=== PATIENT | female | born 1950 | race Caucasian/White ===

== ENCOUNTER 2016-09-11 11:42 | Inpatient (IN) ==
--- NOTE | 2016-09-10 22:41 | Discharge Summary ---
<Letty Thao - Last Filed: 09/12/16 15:25> Date of Encounter: 09/12/16 - Discharge Diagnosis (1) Arthritis of knee, left Priority: Primary Status: Chronic (2) Status post total knee replacement, left Priority: Primary Status: Acute (3) DMII (diabetes mellitus, type 2) Priority: Secondary Status: Chronic Qualifiers: Diabetes mellitus complication status: without complication Diabetes mellitus alf insulin use: unspecified alf insulin use status Qualified Code(s): E11.9 - Type 2 diabetes mellitus without complications (4) HTN (hypertension) Priority: Secondary Status: Chronic Qualifiers: Hypertension type: essential hypertension Qualified Code(s): I10 - Essential (primary) hypertension (5) KELSEA (obstructive sleep apnea) Priority: Secondary Status: Chronic (6) Chronic pain Priority: Secondary Status: Chronic Qualifiers: Chronic pain type: other chronic pain Qualified Code(s): G89.29 - Other chronic pain - Discharge Medications Prescriptions: Lidocaine Patch [Lidoderm 5% patch] 1 each TP DAILY #10 adh..patch Home Medications: Amitriptyline [Elavil] 25 mg PO HS 09/02/15 [History] Cetirizine HCl 10 mg PO DAILY 09/02/15 [History] Citalopram Hydrobromide [Celexa] 40 mg PO DAILY 09/02/15 [History] Duloxetine HCl [Cymbalta] 60 mg PO DAILY 09/02/15 [History] Losartan/Hydrochlorothiazide [Hyzaar 100-12.5 Tablet] 1 tab PO DAILY 09/02/15 [ History] Lubiprostone [Amitiza] 24 mcg PO BID 09/02/15 [History] Magnesium Oxide [Magnesium] 400 mg PO DAILY 09/02/15 [History] Metoprolol [Lopressor] 25 mg PO BID 09/02/15 [History] Morphine Sulfate ER (24 HR) [Morphine Sulfate ER Caps] 30 mg PO Q12H 09/02/15 [ History] Omeprazole [PriLOSEC] 40 mg PO BID 09/02/15 [History] Polyethylene Glycol 3350 [MiraLAX] 17 gm PO DAILY PRN 09/02/15 [History] Ranitidine HCl [Heartburn Relief] 150 mg PO BID 09/02/15 [History] Simvastatin [Zocor] 40 mg PO HS 09/02/15 [History] Sitagliptin Phosphate [Januvia] 50 mg PO DAILY 09/02/15 [History] Tizanidine HCl 4 mg PO Q8H PRN 09/02/15 [History] Trazodone HCl 150 mg PO HS 09/02/15 [History] Fluticasone Propionate Nasal [Flonase] 2 spr NS DAILY PRN 08/08/16 [History] Nitroglycerin [Nitrostat] 0.4 mg SL Q5M PRN 08/08/16 [History] Potassium Chloride [K-Tab ER] 20 meq PO QAM 08/08/16 [History] Aspirin Enteric Coated [Aspirin EC] 325 mg PO DAILY #21 tablet. 09/10/16 [Rx] Aspirin [Lo-Dose Aspirin EC] 81 mg PO DAILY 09/11/16 [History] Docusate [Colace] 100 mg PO DAILY PRN 09/11/16 [History] Potassium Chloride [Klor-Con 10] 10 meq PO QPM 09/11/16 [History] Solifenacin Succinate [Vesicare] 10 mg PO DAILY 09/11/16 [History] Lidocaine Patch [Lidoderm 5% patch] 1 each TP DAILY #10 adh..patch 09/12/16 [Rx] Allergies/Adverse Reactions: Allergies Iodinated Contrast- Oral and IV Dye [Iodinated Contrast Media - IV Dye] Adverse Reaction (Verified 08/08/16 07:13) Itching pregabalin [From Lyrica] Adverse Reaction (Verified 08/08/16 07:13) Cramping of the Muscles Primary care physician: Darrion Saenz MD - Patient Status Disposition: Transfer Inpatient Rehab Fac Condition: Good - Discharge Instructions Follow Up With: Darrion Saenz MD [Primary Care Provider] - - Hospital Course Hospital course: Ms. Adame is a 66 year old female - Time Spent with Patient Total time spent providing and/or coordinating discharge services: <Nayan Mcguire - Last Filed: 09/14/16 06:24> Date of Encounter: 09/14/16 Time of Encounter: 06:24 - Discharge Diagnosis (1) Morbid obesity with BMI of 45.0-49.9, adult Priority: Secondary Status: Chronic (2) Arthritis of knee, left Priority: Primary Status: Chronic (3) Status post total knee replacement, left Priority: Primary Status: Acute (4) DMII (diabetes mellitus, type 2) Priority: Secondary Status: Chronic Qualifiers: Diabetes mellitus complication status: without complication Diabetes mellitus alf insulin use: unspecified alf insulin use status Qualified Code(s): E11.9 - Type 2 diabetes mellitus without complications (5) HTN (hypertension) Priority: Secondary Status: Chronic Qualifiers: Hypertension type: essential hypertension Qualified Code(s): I10 - Essential (primary) hypertension (6) KELSEA (obstructive sleep apnea) Priority: Secondary Status: Chronic (7) Chronic pain Priority: Secondary Status: Chronic Qualifiers: Chronic pain type: other chronic pain Qualified Code(s): G89.29 - Other chronic pain (8) Acute blood loss anemia Priority: Primary Status: Acute Primary care physician: Darrion Saenz MD - Patient Status Functional capacity at discharge: uses cane/walker Overall status at discharge: patient is progressing back to baseline - Hospital Course Hospital course: Ms. Adame is a 66 year old female Status post left total knee replacement. Patient with post-acute blood loss anemia asymptomatic. The patient had an uneventful postoperative course. They received antibiotics and physical therapy and were discharged in stable condition. There will follow -up in the office in 2 weeks. - Time Spent with Patient Total time spent providing and/or coordinating discharge services:
--- NOTE | 2016-09-10 22:48 | Physician Discharge Referral ---
ExtendedCare Referral Info Transfer To: F Provider in Charge after Transfer: PCP Institutional Level of Care: Skilled - Diagnosis (1) Arthritis of knee, left Priority: Primary Status: Acute (2) Status post total knee replacement, left Priority: Primary Status: Acute (3) DMII (diabetes mellitus, type 2) Priority: Secondary Status: Chronic (4) HTN (hypertension) Priority: Secondary Status: Chronic (5) KELSEA (obstructive sleep apnea) Priority: Secondary Status: Chronic (6) Chronic pain Priority: Secondary Status: Chronic Expected Duration of Placement: < 30 days Prognosis: Good Aware of Diagnosis: Patient Aware of Prognosis: Patient - Transfer Medications Prescriptions: Aspirin Enteric Coated [Aspirin EC] 325 mg PO DAILY #21 tablet.dr Home Medications: Amitriptyline [Elavil] 25 mg PO HS 09/02/15 [History] Aspirin Enteric Coated [Aspirin EC] 81 mg PO DAILY 09/02/15 [History] Cetirizine HCl 10 mg PO DAILY 09/02/15 [History] Citalopram Hydrobromide [Celexa] 40 mg PO DAILY 09/02/15 [History] Duloxetine HCl [Cymbalta] 60 mg PO DAILY 09/02/15 [History] Losartan/Hydrochlorothiazide [Hyzaar 100-12.5 Tablet] 1 tab PO DAILY 09/02/15 [ History] Lubiprostone [Amitiza] 24 mcg PO BID 09/02/15 [History] Magnesium Oxide [Magnesium] 400 mg PO DAILY 09/02/15 [History] Metoprolol [Lopressor] 25 mg PO BID 09/02/15 [History] Morphine Sulfate ER (24 HR) [Morphine Sulfate ER Caps] 30 mg PO Q12H 09/02/15 [ History] Omeprazole [PriLOSEC] 40 mg PO DAILY 09/02/15 [History] Oxybutynin Chloride [Ditropan Xl] 10 mg PO DAILY 09/02/15 [History] Polyethylene Glycol 3350 [MiraLAX] 17 gm PO DAILY 09/02/15 [History] Ranitidine HCl [Heartburn Relief] 150 mg PO BID 09/02/15 [History] Simvastatin [Zocor] 40 mg PO HS 09/02/15 [History] Sitagliptin Phosphate [Januvia] 50 mg PO DAILY 09/02/15 [History] Tizanidine HCl 4 mg PO Q8H PRN 09/02/15 [History] Trazodone HCl 150 mg PO HS 09/02/15 [History] Fluticasone Propionate Nasal [Flonase] 2 spr NS DAILY PRN 08/08/16 [History] Nitroglycerin [Nitrostat] 0.4 mg SL Q5M PRN 08/08/16 [History] OxyCODONE/APAP 10/325 [Percocet 10/325 MG] 1 each PO Q6HR PRN #26 tablet [Rx] Potassium Chloride [K-Tab ER] 20 meq PO QPM 08/08/16 [History] Aspirin Enteric Coated [Aspirin EC] 325 mg PO DAILY #21 tablet. 09/10/16 [Rx] Allergies/Adverse Reactions: Allergies Iodinated Contrast- Oral and IV Dye [Iodinated Contrast Media - IV Dye] Adverse Reaction (Verified 08/08/16 07:13) Itching pregabalin [From Lyrica] Adverse Reaction (Verified 08/08/16 07:13) Cramping of the Muscles - Respiratory Orders None Smoking Cessation: Smoking cessation has been advised. For more information, call the [place] Tobacco Quit Line at 9-128-TTJZ-NOW. - Ancillary Orders May use pressure relief devices daily prn, May go on CLAY w/family/respon republican w /meds at nurse discretion PRN, May consult with Dentist, Front Office Java Developer, Facsimile Machine Operator PRN - Mobility Orders Chair, Ambulate - Rehabiliation Orders Rehab Potential: Good Rehab Orders: ROM Exercises, Evaluation for Physical Therapy, Evaluation for Occupational Therapy - Treatments List/Other: Opsite dressing, leave intact until first post-operative visit. If dressing becomes >50% saturated, contact office, remove dressing and place appropriate dressing in its place. Do not allow for dressing to get wet. [place] in place, plan to remove at post-operative day #14-16. Total Joint Precautions x 6 weeks Apply cold therapy wrap 3-6x/day for 20 minutes at a time. Encourage ambulation throughout the day Use Incentive spirometer 10x/hour. Elevate affected extremity above heart as tolerated. Brace: Wear knee immobilizer at night x 2 weeks - Diet Orders Regular CERTIFICATION: I certify that the transfer of the above named patient to an Extended Care Facility is necessary for the continuing treatment of the diagnosis listed. The above information is true and accurate reflection of patient's current condition. Confidential - Redisclosure prohibited without a patient's written consent.
--- NOTE | 2016-09-11 12:14 | History & Physical Report ---
Date of Encounter: 09/11/16 Time of Encounter: 12:14 24 Hour HP Update - Instructions Instructions: If the History and Physical is less than 30 days old and was completed prior to A.M. admission and or procedure and has NOT been updated on calendar day of procedure please complete this update prior to performing procedure. - Update Patient reports changes in Medical Condition: No Changes in examination, assessment, or condition: No Changes in Medication: No Preop tests/diagnostics Reviewed: Yes Surgery Remains Indicated: Yes Consent for Planned Operative Procedure(s) Verified: Yes - Pre-Operative Checklist Preoperative Checklist Indicated: No Prophylactic Antibiotic Ordered: Yes Is VTE Prophylaxis Indicated?: Yes
[2016-09-11] MEDS ORDERED: Albuterol 2.5 MG/3 ML NEBULIZER IH ONE ×2 (12:20→14:28)
[2016-09-11] MEDS ORDERED: CeFAZolin Pre 3,000 MG/100 ML 3,000 MG/100 ML BAG IVPB ONE (12:20)
[2016-09-11] MEDS ORDERED: *HR* Propofol 200 MG/20 ML VIAL IVP ONE (12:30)
[2016-09-11] MEDS ORDERED: *HR* Midazolam HCl 2 MG/2 ML VIAL ONE (12:30)
[2016-09-11] MEDS ORDERED: Ringers Solution, Lactated 1,000 ML IVC SCH ×3 (12:30→17:40)
[2016-09-11] MEDS ORDERED: *HR* FentaNYL (PF) 100 MCG/2 ML VIAL ONE (12:30)
[2016-09-11] MEDS ORDERED: Lidocaine -MPF 2% 2 ML VIAL ONE (12:31)
[2016-09-11] MEDS ORDERED: Famotidine 20 MG/2 ML VIAL IVP ONE (13:11)
--- NOTE | 2016-09-11 13:30 | Anesthesia Evaluation PreOp ---
Date of Encounter: 09/11/16 Time of Encounter: 13:25 - Past History Planned Operation: Left TKA Cardiac History: HTN, Hyperlipidemia Pulmonary History: KELSEA Dx (BiPAP) TRAFFIC INSPECTOR History: Other (Fibromyalgia) Other Medical History: Diabetes Type II (Accu check 101) Anesthesia History: No Prior Anesthetic Complications : No Test: Negative Alcohol Use: occasionally Drug use: none Medications and Allergies Amitriptyline [Elavil] 25 mg PO HS 09/02/15 [History] Aspirin Enteric Coated [Aspirin EC] 81 mg PO DAILY 09/02/15 [History] Cetirizine HCl 10 mg PO DAILY 09/02/15 [History] Citalopram Hydrobromide [Celexa] 40 mg PO DAILY 09/02/15 [History] Duloxetine HCl [Cymbalta] 60 mg PO DAILY 09/02/15 [History] Losartan/Hydrochlorothiazide [Hyzaar 100-12.5 Tablet] 1 tab PO DAILY 09/02/15 [ History] Lubiprostone [Amitiza] 24 mcg PO BID 09/02/15 [History] Magnesium Oxide [Magnesium] 400 mg PO DAILY 09/02/15 [History] Metoprolol [Lopressor] 25 mg PO BID 09/02/15 [History] Morphine Sulfate ER (24 HR) [Morphine Sulfate ER Caps] 30 mg PO Q12H 09/02/15 [ History] Omeprazole [PriLOSEC] 40 mg PO DAILY 09/02/15 [History] Oxybutynin Chloride [Ditropan Xl] 10 mg PO DAILY 09/02/15 [History] Polyethylene Glycol 3350 [MiraLAX] 17 gm PO DAILY 09/02/15 [History] Ranitidine HCl [Heartburn Relief] 150 mg PO BID 09/02/15 [History] Simvastatin [Zocor] 40 mg PO HS 09/02/15 [History] Sitagliptin Phosphate [Januvia] 50 mg PO DAILY 09/02/15 [History] Tizanidine HCl 4 mg PO Q8H PRN 09/02/15 [History] Trazodone HCl 150 mg PO HS 09/02/15 [History] Fluticasone Propionate Nasal [Flonase] 2 spr NS DAILY PRN 08/08/16 [History] Nitroglycerin [Nitrostat] 0.4 mg SL Q5M PRN 08/08/16 [History] OxyCODONE/APAP 10/325 [Percocet 10/325 MG] 1 each PO Q6HR PRN #26 tablet [Rx] Potassium Chloride [K-Tab ER] 20 meq PO QPM 08/08/16 [History] Aspirin Enteric Coated [Aspirin EC] 325 mg PO DAILY #21 tablet. 09/10/16 [Rx] Allergies Iodinated Contrast- Oral and IV Dye [Iodinated Contrast Media - IV Dye] Adverse Reaction (Verified 08/08/16 07:13) Itching pregabalin [From Lyrica] Adverse Reaction (Verified 08/08/16 07:13) Cramping of the Muscles - Meds/Allergy Pre-op Review Medications Reviewed: Yes Allergies Reviewed: Yes Beta Blockers on Current Med List: Yes (Took today 1310 Metoprolol) Anesthesia Results - Labs Laboratory Tests 08/19/15 09/06/16 09/06/16 19:20 15:27 15:27 Hgb 13.3 Hct 42.2 Plt Count 262 Sodium 139 Potassium 3.6 BUN 17 POC Creatinine 1.20 H - Imaging EKG: report reviewed (SR) Anesthesia Exam O2 Sat Height 1.68 m Height 1.68 m Height 1.68 m Weight 133.356 kg Weight 133.356 kg Weight 133.356 kg O2 Sat by Pulse Oximetry 95 Vital Signs Temp Pulse Resp BP Pulse Ox 98.2 F 61 18 143/59 95 09/11/16 12:12 09/11/16 12:12 09/11/16 12:12 09/11/16 12:12 09/11/16 12:12 Height: 5'6 Weight: 294 lbs NPO (# of Hours): MN Pain Scale: 0 - HEENT Pupil (Motor): Pupils equal, EOMI Mallampati: III Teeth: Normal Oral Opening: Less than or equal to 3 - TRAFFIC INSPECTOR LOC: Oriented TRAFFIC INSPECTOR Motor: Normal RUE, Normal LUE, Normal RLE, Normal LLE, Normal Face TRAFFIC INSPECTOR Sensory: Normal: RUE, LUE, RLE, LLE, Face - Cardiac Rhythm: Regular Murmur: None JVD: No Carotid Bruit: No - Pulmonary Breath Sounds: bilateral Clear Respiratory Effort: Symmetrical Anesthesia Assess/Plan ASA Score: 3 (MO HTN) Modified Monserrat Scale for Level of Consciousness: Cooperative, oriented, and tranquil Anesthetic Plan: General, Regional Monitoring Plan: Standard Monitors Recovery Plan: PACU (Discussed GA and RA, agrees to proceed)
[2016-09-11] MEDS ORDERED: ROPIVACAINE HCL/PF 0.5% 30 ML VIAL ONE (13:35)
[2016-09-11] MEDS ORDERED: Dexamethasone 4 MG/ML VIAL ONE ×2 (13:35→14:17)
[2016-09-11] MEDS ORDERED: Bupivacaine/Clonidine Syringe 1 EACH SYRINGE ONE (13:36)
[2016-09-11] MEDS ORDERED: Ondansetron 4 MG/2 ML VIAL ONE (14:17)
[2016-09-11] MEDS ORDERED: *HR* Labetalol 20 MG/4 ML SYRINGE IVP PRN (14:28)
[2016-09-11] MEDS ORDERED: Naloxone 0.4 MG/ML INJ IVP PRN ×2 (14:28→17:40)
[2016-09-11] MEDS ORDERED: *HR* Meperidine 25 MG/ML SYRINGE IVP PRN (14:28)
[2016-09-11] MEDS ORDERED: Ondansetron 4 MG/2 ML VIAL IVP ONE (14:28)
--- NOTE | 2016-09-11 14:28 | Anesthesia Procedures ---
Date of Encounter: 09/11/16 Time of Encounter: 14:26 Procedures: Anesthesia - Nerve Block Procedure Date: 09/11/16 Time: 14:26 Surgical Procedure: left tka Checklist: Correct Patient Identifier, Correct procedure, History checked Correct side: Left Blood Thinner: No Monitor Applied: EKG, BP, Pulse Oximetry Sedation: Versed (mg): 2 Sedation: Fentanyl (mcg): 100 Indication: Post Op Analgesia (request per dr salvador for post op pain control) Pre-op Neuro Deficits: No Block Type: Femoral Catheter placed: No Sterile Technique: Yes Ultrasound used: Yes Anatomy identified: Yes Visual spread of Local: Yes Neuro Stimulation: Yes Nerve Stimulator Range: >0.4 - 0.6 mA Blood on Needle Aspiration: No Smooth Injection of Local: Yes Pain with Injection of Local: No Prep: Chlorhexadine Needle: 21 x 100 mm Stimuplex Local: Ropivacaine (0.5% with 8mg decadron) Volume (cc): 30 Number of Attempts: 1 Complications: None/effective block Vitals: Vital Signs/O2 Sat/Glucose, Most Current Temp Pulse Resp BP Pulse Ox 09/11/16 14:01 57 16 127/82 96 09/11/16 12:12 98.2 F 61 18 143/59 95 Comments: pt tolerated procedure well. no complications. vss. attempted ipack block - unable to visualize on US.
[2016-09-11] MEDS ORDERED: *HR* HYDROmorphone 2 MG/ML SYRINGE ONE (14:29)
--- NOTE | 2016-09-11 15:10 | Orthopedic Operative Note ---
Date of procedure: 09/11/16 Pre-op diagnosis: Left knee arthritis Post-op diagnosis: same Procedure: Procedure: Left Total knee replacement Estimated blood loss: 200 cc Hardware: Metal and polyethylene replacement: Biomet Femur: 70, 18 x 120 Tibia: 71, 14 x 120 Farzana insert: 12 Patella: 40 Exam Under anesthesia: Loss full extension 10 degrees less than 90 degrees Procedural Notes: Grade 4 arthritic changes in all 3 compartments. Operative procedure: The patient was brought to the operating room and placed on the operating room table. After general anesthesia was administered the operative knee was examined. Findings were noted in the exam under anesthesia. The operative extremity was prepped and draped in sterile surgical fashion. The patient received IV antibiotics prior to skin incision. A standard midline incision was made centered over the patella. The incision was made through the skin and subcutaneous tissue. A medial parapatellar tendon approach was performed. Care was taken to preserve tissue along the medial aspect of the patella. And to protect the patella tendon. The deep MCL was released off the medial tibia. The infra patella fat pad was excised. Knee was brought into flexion. Patient noted to have grade 4 arthritic changes all 3 compartments. The entry hole was made for the intramedullary femoral guide. The guide was seated in 6 degrees of valgus. Anterior cut was made followed by the distal cut. The PCL the medial and the lateral menisci were excised. The tibia was subluxed forward. The entry hole was made for the intramedullary tibial guide. Guide was seated to resect 2 mm off the more abnormal side. The knee was brought into flexion the distal femur was sized to a 70 The femur was first reamed to a 18 x 120 The femoral guide was seated, the anterior cut was made followed by the posterior condylar cut, followed by the chamfer cuts. The finishing guide was seated the box cut was made. Trial had good fit and fixation The tibia was sized to a an 71 The tibia was first reamed 10 x 120 Trial reduction revealed full extension no varus valgus instability with the appropriate 12 insert. The patella was everted and cut was made at the level of the insertion of the quadriceps and patella tendon. The patella was sized to a 40 the guide was seated and the lug holes are drilled. Trial reduction revealed excellent patella tracking. All trial components were removed all bony surfaces were irrigated. Components were assembled on the back table. The femur was cemented first followed by the tibia. The 12 Farzana was seated and secured. The knee was brought into full extension. The patella was cemented and held in place with the patellar holding clamp. After the cement had hardened, the knee sat for 2 minutes with a Betadine saline solution. The knee was then irrigated out with 2 L of pulse irrigation. The knee was closed by the PA The extensor mechanism was closed with #2 FiberWire suture and #2 PDS suture. The subcutaneous tissue was then irrigated and closed deep with #1 PDS suture superficially with 0 PDS suture and skin was closed with skin andrews The patient was then placed in a sterile dressing and a postoperative brace extubated and transferred to recovery room in stable condition. Anesthesia: DEXTER Surgeon: Nayan Mcguire Steel Post Installer: Letty Thao Condition: stable Disposition: PACU
[2016-09-11] MEDS: *HR* HYDROmorphone (PF) 1 MG/ML SYRINGE IVP PRN ×4 (15:49→16:15)
[2016-09-11 16:18] LABS: Hematocrit 38.2 % (35.3-44.9); Hemoglobin 11.9 g/dL (11.5-15.4)
[2016-09-11] MEDS ORDERED: *HR* Promethazine 25 MG/ML VIAL IVP PRN (16:19)
[2016-09-11] MEDS ORDERED: *HR* Promethazine 25 MG/ML VIAL ONE (16:21)
--- NOTE | 2016-09-11 16:23 | Anesthesia Evaluation Post Op ---
Date of Encounter: 09/11/16 Time of Encounter: 16:22 - Vital Signs Vital Signs: Last Vital Signs Temp 98.2 F 09/11/16 16:03 Pulse 74 09/11/16 16:13 Resp 14 09/11/16 16:13 BP 144/73 09/11/16 16:13 Pulse Ox 98 09/11/16 16:13 - Lungs Lungs: Clear Ascult./Percussion - Airway Airway: Non-obstructed - Cardiovascular Regular Rate - Mental Status Mental Status: Alert & Oriented, Answers Appropriately - Pain Pain Scale: 4 - Nausea Vomiting Nausea Vomiting: Responds to treatment with IV Meds - Hydration Hydration: NPO - Discharge PostOp Status: Transfer Patient to floor
[2016-09-11] MEDS ORDERED: Ondansetron 4 MG/2 ML VIAL IVP PRN (17:40)
[2016-09-11] MEDS ORDERED: *HR* OxyCODONE Immed Rel 5 MG TABLET PO PRN (17:40)
[2016-09-11] MEDS ORDERED: *HR* Enoxaparin 30 MG/0.3 ML SYRINGE SQ SCH (18:00)
[2016-09-11] MEDS: ceFAZolin 3,000 MG in D5% in Water 100 ML IVPB SCH (18:47)
[2016-09-11] MEDS: *HR* Enoxaparin 30 MG/0.3 ML SYRINGE SQ SCH (18:48)
[2016-09-11] MEDS ORDERED: tiZANidine 4 MG TABLET PO PRN (19:05)
[2016-09-11] MEDS ORDERED: Nitroglycerin 0.4 MG TAB.SUBL SL PRN (19:05)
[2016-09-11] MEDS ORDERED: Fluticasone Propionate Nasal 50 MCG/SPRAY BOTTLE NS PRN (19:05)
[2016-09-11] MEDS ORDERED: MOM Conc 10 ML UD.LIQ PO PRN (21:00)
[2016-09-11] MEDS ORDERED: Temazepam 15 MG CAPSULE PO PRN (21:00)
[2016-09-11] MEDS ORDERED: Sennosides 8.6 MG TABLET PO PRN (21:00)
[2016-09-11] MEDS: Famotidine 20 MG TABLET PO SCH (21:34)
[2016-09-11] MEDS: traZODone 50 MG TABLET PO SCH (21:35)
[2016-09-11] MEDS: *HR* OxyCODONE Immed Rel 5 MG TABLET PO PRN (21:36)
[2016-09-11] MEDS: (Lubiprostone [Amitiza] 24 MCG) PO SCH (21:38)
[2016-09-12] MEDS: ceFAZolin 3,000 MG in D5% in Water 100 ML IVPB SCH (00:50)
[2016-09-12] MEDS: *HR* OxyCODONE Immed Rel 5 MG TABLET PO PRN ×4 (02:27→20:16)
[2016-09-12] MEDS: *HR* Enoxaparin 30 MG/0.3 ML SYRINGE SQ SCH ×2 (04:57→20:15)
[2016-09-12] MEDS: *HR* HYDROmorphone (PF) 1 MG/ML SYRINGE IVP PRN ×2 (05:01→23:33)
[2016-09-12 06:03] LABS: Hematocrit 30.9 % (35.3-44.9)
[2016-09-12 06:17] LABS: Calcium 8.6 mg/dL (8.6-10.8); Potassium 3.9 mEq/L (3.5-4.5)
--- NOTE | 2016-09-12 06:28 | Orthopedics Progress Note ---
Date of Encounter: 09/12/16 Time of Encounter: 06:28 - Assessment and Plan (1) Morbid obesity with BMI of 45.0-49.9, adult Current Visit: Yes Status: Chronic (2) Arthritis of knee, left Current Visit: Yes Status: Chronic (3) Status post total knee replacement, left Current Visit: Yes Status: Acute (4) DMII (diabetes mellitus, type 2) Current Visit: Yes Status: Chronic Qualifiers: Diabetes mellitus complication status: without complication Diabetes mellitus terminal manager insulin use: unspecified usp insulin use status Qualified Code(s): E11.9 - Type 2 diabetes mellitus without complications (5) HTN (hypertension) Current Visit: Yes Status: Chronic Qualifiers: Hypertension type: essential hypertension Qualified Code(s): I10 - Essential (primary) hypertension (6) KELSEA (obstructive sleep apnea) Current Visit: Yes Status: Chronic (7) Chronic pain Current Visit: Yes Status: Chronic Qualifiers: Chronic pain type: other chronic pain Qualified Code(s): G89.29 - Other chronic pain Subjective Interval history: Patient was seen this morning doing well without complaints. Afebrile vital signs stable. Operative extremity: Neurovascularly intact Dressing clean dry and intact Calves nontender Assessment and plan: Continue with postoperative care Hematocrit 30 Objective Vital signs: Vital Signs Temp Pulse Resp BP Pulse Ox 09/12/16 04:52 98.3 F 76 19 163/65 100 09/12/16 00:05 99.4 F 105 20 122/70 98 09/11/16 19:52 98.9 F 107 20 107/77 96 09/11/16 18:25 98.9 F 98 17 107/77 97 09/11/16 18:04 98.9 F 91 19 141/76 97 09/11/16 17:40 98.3 F 97 17 109/86 99 09/11/16 17:35 98.3 F 97 17 109/86 99 09/11/16 17:17 97.9 F 89 18 119/88 99 09/11/16 17:02 97.9 F 87 12 151/80 99 09/11/16 16:53 86 11 140/84 97 09/11/16 16:43 79 10 148/94 94 09/11/16 16:33 98.0 F 78 10 143/83 97 09/11/16 16:23 73 12 143/76 97 09/11/16 16:13 74 14 144/73 98 09/11/16 16:03 98.2 F 79 16 142/81 99 09/11/16 15:53 75 14 149/75 95 09/11/16 15:43 80 16 150/81 98 09/11/16 15:33 97.5 F L 71 16 140/69 96 09/11/16 14:01 57 16 127/82 96 09/11/16 12:12 98.2 F 61 18 143/59 95 Intake and Output 09/11/16 09/11/16 09/12/16 15:59 23:59 07:59 Intake Total 100 / 100 100 / 100 350 / 350 Output Total 200 / 200 Balance -100 / -100 100 / 100 350 / 350 Intake: IV Fluids 100 / 100 100 / 100 Ancef Premix 3,000 MG/100 100 / 100 ML 3,000 mg In 100 ml @ 200 mls/hr IVPB PREOP ONE Rx#:[id number] Ancef 3,000 MG In 100 / 100 Dextrose 5% 100 ML @ 200 mls/hr IVPB Q8HR SHANAE Rx#: [id number] Oral 350 / 350 Output: Estimated Blood Loss 200 / 200 Other: Weight 133.356 kg Blood Glucose* 126 214 - Labs CBC & BMP: 09/12/16 04:43 09/12/16 04:43 Labs: Abnormal lab results Hgb 10.0 g/dL (11.5-15.4) L D 09/12/16 04:43 Hct 30.9 % (35.3-44.9) L 09/12/16 04:43 Creatinine 1.20 mg/dL (0.57-1.11) H 09/12/16 04:43 Est GFR ( Amer) 55 (> 60) L 09/12/16 04:43 Est GFR (Non-Af Amer) 45 (> 60) L 09/12/16 04:43 Glucose 146 mg/dL (70-99) H 09/12/16 04:43 POC Glucose 214 (58-89) H 09/11/16 21:04 - VTE Documentation of Mechanical Device: Venous foot pump, device Consult Discharge Plan - Plan Referrals: Darrion Saenz MD [Primary Care Provider] -
[2016-09-12] MEDS ORDERED: NON-FORMULARY MEDICATION 1 EACH EACH (Losartan/Hydrochlorothiazide [Hyzaar 100-12.5 Tablet PO SCH (09:00)
[2016-09-12] MEDS: *HR* SitaGLIPtin 25 MG TABLET PO SCH (09:03)
[2016-09-12] MEDS: Loratadine 10 MG TABLET PO SCH (09:03)
[2016-09-12] MEDS: hydroCHLOROthiazide 25 MG TABLET PO SCH (09:04)
[2016-09-12] MEDS: Magnesium Oxide 400 MG TABLET PO SCH (09:04)
[2016-09-12] MEDS: Aspirin Enteric Coated 81 MG Tablet PO SCH (09:05)
[2016-09-12] MEDS: Famotidine 20 MG TABLET PO SCH ×2 (09:05→20:15)
[2016-09-12] MEDS: (Lubiprostone [Amitiza] 24 MCG) PO SCH ×2 (09:06→20:17)
--- NOTE | 2016-09-12 11:59 | Event Note ---
Date of Encounter: 09/12/16 Time of Encounter: 11:55 PCR - POD#1 - Left TKR - 09/11/16 Patient seen at bedside. Knee pain noted; trouble ambulating with PT. Changed to Vesicare by PCP, will resume this in hospital Pain control: Chronic pain - on Morphine Sulfate 30 BID - Adding Lidoderm patch for additional pain control. NEEDS IS IN ROOM* Participating in PT. All questions and concerns addressed. Educated on use of incentive spirometer, ambulation, and hydration. Patient educated on post-operative restrictions and care. Addressed: Lidoderm patch not approved by insurance, will get for [facility]CF. Along with compound cream. D/C plan: [facility] - likely 09/14/16
[2016-09-12] MEDS: traZODone 50 MG TABLET PO SCH (20:16)
[2016-09-13] MEDS: *HR* HYDROmorphone (PF) 1 MG/ML SYRINGE IVP PRN (03:53)
[2016-09-13 05:07] LABS: Hematocrit 27.1 % (35.3-44.9); Hemoglobin 8.7 g/dL (11.5-15.4)
[2016-09-13 05:29] LABS: Calcium 8.5 mg/dL (8.6-10.8); Potassium 3.8 mEq/L (3.5-4.5)
[2016-09-13] MEDS: *HR* OxyCODONE Immed Rel 5 MG TABLET PO PRN ×4 (06:05→22:27)
[2016-09-13] MEDS: *HR* Enoxaparin 30 MG/0.3 ML SYRINGE SQ SCH ×2 (06:07→17:00)
--- NOTE | 2016-09-13 08:04 | Orthopedics Progress Note ---
Date of Encounter: 09/13/16 Time of Encounter: 08:04 - Assessment and Plan (1) Morbid obesity with BMI of 45.0-49.9, adult Current Visit: Yes Status: Chronic (2) Arthritis of knee, left Current Visit: Yes Status: Chronic (3) Status post total knee replacement, left Current Visit: Yes Status: Acute (4) DMII (diabetes mellitus, type 2) Current Visit: Yes Status: Chronic Qualifiers: Diabetes mellitus complication status: without complication Diabetes mellitus intermediate teacher insulin use: unspecified skilled nursing insulin use status Qualified Code(s): E11.9 - Type 2 diabetes mellitus without complications (5) HTN (hypertension) Current Visit: Yes Status: Chronic Qualifiers: Hypertension type: essential hypertension Qualified Code(s): I10 - Essential (primary) hypertension (6) KELSEA (obstructive sleep apnea) Current Visit: Yes Status: Chronic (7) Chronic pain Current Visit: Yes Status: Chronic Qualifiers: Chronic pain type: other chronic pain Qualified Code(s): G89.29 - Other chronic pain (8) Acute blood loss anemia Current Visit: Yes Status: Acute Subjective Interval history: Patient was seen this morning doing well without complaints. Afebrile vital signs stable. Operative extremity: Neurovascularly intact Dressing clean dry and intact Calves nontender Assessment and plan: Continue with postoperative care Hemoglobin 8.7 asymptomatic Objective Vital signs: Vital Signs Temp Pulse Resp BP Pulse Ox 09/13/16 07:15 99.1 F 80 16 146/85 93 09/13/16 03:30 99.1 F 78 16 145/56 95 09/12/16 23:37 99.3 F 80 18 157/79 100 09/12/16 20:00 99.1 F 84 17 131/71 97 09/12/16 15:14 99.2 F 76 18 139/68 96 09/12/16 12:42 95 09/12/16 11:17 98.2 F 81 18 181/69 95 Intake and Output 09/12/16 09/13/16 09/13/16 23:59 07:59 15:59 Output Total 650 / 650 200 / 200 Balance -650 / -650 -200 / -200 Output: Urine 650 / 650 200 / 200 Other: Weight 133.7 kg Blood Glucose* 156 Patient Weight 09/13/16 23:59 Weight 133.7 kg - Labs CBC & BMP: 09/13/16 04:34 09/13/16 04:34 Labs: Abnormal lab results Hgb 8.7 g/dL (11.5-15.4) L 09/13/16 04:34 Hct 27.1 % (35.3-44.9) L 09/13/16 04:34 Creatinine 1.21 mg/dL (0.57-1.11) H 09/13/16 04:34 Est GFR ( Amer) 54 (> 60) L 09/13/16 04:34 Est GFR (Non-Af Amer) 45 (> 60) L 09/13/16 04:34 Glucose 137 mg/dL (70-99) H 09/13/16 04:34 POC Glucose 130 (58-89) H 09/13/16 07:23 Calcium 8.5 mg/dL (8.6-10.8) L 09/13/16 04:34 - VTE Documentation of Mechanical Device: Venous foot pump, device Consult Discharge Plan - Plan Referrals: Darrion Saenz MD [Primary Care Provider] - Prescriptions: Lidocaine Patch [Lidoderm 5% patch] 1 each TP DAILY #10 adh..patch
[2016-09-13] MEDS: hydroCHLOROthiazide 25 MG TABLET PO SCH (09:22)
[2016-09-13] MEDS: *HR* SitaGLIPtin 25 MG TABLET PO SCH (09:23)
[2016-09-13] MEDS: Famotidine 20 MG TABLET PO SCH ×2 (09:23→20:23)
[2016-09-13] MEDS: Aspirin Enteric Coated 81 MG Tablet PO SCH (09:23)
[2016-09-13] MEDS: Magnesium Oxide 400 MG TABLET PO SCH (09:24)
[2016-09-13] MEDS: Loratadine 10 MG TABLET PO SCH (09:24)
[2016-09-13] MEDS: (Lubiprostone [Amitiza] 24 MCG) PO SCH ×2 (09:25→20:26)
--- NOTE | 2016-09-13 12:23 | Event Note ---
Date of Encounter: 09/13/16 Time of Encounter: 12:50 PCR - POD#2 - Left TKR - 09/11/16 Patient seen at bedside. Changed to Vesicare by PCP, resumed this in hospital Pain control: Chronic pain - on Morphine Sulfate 30 BID - Lidoderm patch for additional pain control. NEEDS IS IN ROOM* Participating in PT. All questions and concerns addressed. Educated on use of incentive spirometer, ambulation, and hydration. Patient educated on post-operative restrictions and care. Addressed: Lidoderm patch not approved by insurance, will get for ECF. Along with compound cream. D/C plan: [facility] - auth obtained - discharge 09/14/16 per insurance
[2016-09-13] MEDS: traZODone 50 MG TABLET PO SCH (20:22)
[2016-09-14] MEDS: *HR* Enoxaparin 30 MG/0.3 ML SYRINGE SQ SCH (05:55)
--- NOTE | 2016-09-14 06:25 | Orthopedics Progress Note ---
Date of Encounter: 09/14/16 Time of Encounter: 06:25 - Assessment and Plan (1) Morbid obesity with BMI of 45.0-49.9, adult Current Visit: Yes Status: Chronic (2) Arthritis of knee, left Current Visit: Yes Status: Chronic (3) Status post total knee replacement, left Current Visit: Yes Status: Acute (4) DMII (diabetes mellitus, type 2) Current Visit: Yes Status: Chronic Qualifiers: Diabetes mellitus complication status: without complication Diabetes mellitus long chain dyeing machine operator insulin use: unspecified group home insulin use status Qualified Code(s): E11.9 - Type 2 diabetes mellitus without complications (5) HTN (hypertension) Current Visit: Yes Status: Chronic Qualifiers: Hypertension type: essential hypertension Qualified Code(s): I10 - Essential (primary) hypertension (6) KELSEA (obstructive sleep apnea) Current Visit: Yes Status: Chronic (7) Chronic pain Current Visit: Yes Status: Chronic Qualifiers: Chronic pain type: other chronic pain Qualified Code(s): G89.29 - Other chronic pain (8) Acute blood loss anemia Current Visit: Yes Status: Acute Subjective Interval history: Patient was seen this morning doing well without complaints. Afebrile vital signs stable. Operative extremity: Neurovascularly intact Dressing clean dry and intact Calves nontender Assessment and plan: Continue with postoperative care Discharged today Objective Vital signs: Vital Signs Temp Pulse Resp BP Pulse Ox 09/14/16 00:39 99.4 F 76 19 147/78 95 09/13/16 22:21 99.5 F 85 18 135/76 96 09/13/16 20:12 99.6 F 90 16 137/68 95 09/13/16 15:40 98.5 F 78 18 156/75 96 09/13/16 12:28 97 09/13/16 11:10 98.6 F 87 16 170/75 97 09/13/16 07:15 99.1 F 80 16 146/85 93 Intake and Output 09/13/16 09/13/16 09/14/16 15:59 23:59 07:59 Intake Total 240 / 240 50 / 50 Output Total 1900 / 1900 250 / 250 Balance -1660 / -1660 -200 / -200 Intake: Oral 240 / 240 50 / 50 Output: Urine 1900 / 1900 250 / 250 Other: Meal Lunch Percent of Meal Consumed 75% # Voids 1 Blood Glucose* 153 162 - Labs CBC & BMP: 09/13/16 04:34 09/13/16 04:34 Labs: Abnormal lab results Hgb 8.7 g/dL (11.5-15.4) L 09/13/16 04:34 Hct 27.1 % (35.3-44.9) L 09/13/16 04:34 Creatinine 1.21 mg/dL (0.57-1.11) H 09/13/16 04:34 Est GFR ( Amer) 54 (> 60) L 09/13/16 04:34 Est GFR (Non-Af Amer) 45 (> 60) L 09/13/16 04:34 Glucose 137 mg/dL (70-99) H 09/13/16 04:34 POC Glucose 122 (58-89) H 09/13/16 15:44 Calcium 8.5 mg/dL (8.6-10.8) L 09/13/16 04:34 - VTE Documentation of Mechanical Device: Venous foot pump, device Consult Discharge Plan - Plan Referrals: Darrion Saenz MD [Primary Care Provider] - Prescriptions: Lidocaine Patch [Lidoderm 5% patch] 1 each TP DAILY #10 adh..patch
[2016-09-14 07:12] VITALS: BP 138/82
[2016-09-14] MEDS: *HR* HYDROmorphone (PF) 1 MG/ML SYRINGE IVP PRN (07:22)
[2016-09-14] MEDS: Aspirin Enteric Coated 81 MG Tablet PO SCH (09:14)
[2016-09-14] MEDS: Famotidine 20 MG TABLET PO SCH (09:14)
[2016-09-14] MEDS: Loratadine 10 MG TABLET PO SCH (09:14)
[2016-09-14] MEDS: *HR* SitaGLIPtin 25 MG TABLET PO SCH (09:15)
[2016-09-14] MEDS: hydroCHLOROthiazide 25 MG TABLET PO SCH (09:15)
[2016-09-14] MEDS: Magnesium Oxide 400 MG TABLET PO SCH (09:16)
[2016-09-14] MEDS: (Lubiprostone [Amitiza] 24 MCG) PO SCH (10:23)
--- NOTE | 2016-09-14 11:32 | Event Note ---
Date of Encounter: 09/14/16 Time of Encounter: 11:30 PCR - POD#3 - Left TKR - 09/11/16 - H/h 8.7&27 Patient D/C'ed to [facility] prior to PCR. Asymtomatic per progress note* Addressed: Lidoderm patch not approved by insurance, will get for ECF. Along with compound cream. D/C plan: [facility] - breanna obtained - discharge 09/14/16 per insurance
== END 2016-09-14 11:15 | DRG 470 ==
LOC: SAMDAY 11:42 → 3NENU 18:19
PROVIDERS: ADMIT Orthopaedic Surgery; ATTEND Orthopaedic Surgery